=== PATIENT | male | born 1990 | race African-American/Black ===

== ENCOUNTER 2019-08-04 15:17 | Emergency (ER) | payer OTHER, BC ==
[~2019-08-04] VITALS: Ht 188 cm; Wt 99.8 kg
[2019-08-04 15:23] VITALS: Ht 188 cm; Wt 99.8 kg
[2019-08-04 15:54] VITALS: BP 151/89
== END 2019-08-04 15:54 | disposition home or self-care (01) ==
LOC: ED 15:17
DX: S13.4XXA Sprain of ligaments of cervical spine, initial encounter (principal); M25.511 Pain in right shoulder; M25.512 Pain in left shoulder; V49.49XA Driver injured in collision with other motor vehicles in traffic accident, initial encounter; Y93.I9 Activity, other involving external motion; Y92.488 Other paved roadways as the place of occurrence of the external cause; Y99.8 Other external cause status